=== PATIENT | male | born 2000 | race African-American/Black ===

== ENCOUNTER 2021-01-15 16:53 | Emergency (ER) | payer BC ==
[~2021-01-15] VITALS: Ht 190.5 cm; Wt 79.5 kg
[2021-01-15] MEDS ORDERED: DIPH,PERTUSS(ACELL),TET VAC/PF 0.5 ML SYRINGE. VAX IM ONE (17:45)
[2021-01-15] MEDS ORDERED: LIDOCAINE 2% Multi-Dose 20 ML VIAL. IJ ONE (17:45)
[2021-01-15] MEDS ORDERED: CEPH500T PO (18:27)
--- NOTE | 2021-01-15 18:28 | ED.ADGEN ---
Past Medical History Past Medical History: Asthma Past Surgical History: No Surgical History Smoking Status: Never Smoker Alcohol Use: None Drug Use: None General Adult EDM: Chief Complaint: LACERATION/AVULSION HPI: HPI: Patient is a 20 year old AA male who presents emergency department, accompanied by his mother, with complaints of a laceration to his right thumb. Patient reports he was trying to get the attention of his younger brother when he tapped on a window and his hand went through the window. He denies any decreased range of motion, loss of sensation, numbness, tingling, or weakness of the affected digit. Patient reports that he is dominantly right-handed. He is unsure when his last tetanus immunization was. He currently rates his pain 8 out of 10 on the pain scale and describes it as a throbbing sensation. Review of Systems: Review of Systems: Complete ROS is negative unless otherwise noted in HPI. 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 [] HENT: Normocephalic, atraumatic, bilateral external ears normal, nose normal. [] Eyes: PERRLA, EOMI, conjunctiva normal, no discharge. [] Neck: Normal range of motion, no stridor. [] Cardiovascular:Heart rate regular rhythm Lungs & Thorax: Respirations even and unlabored, no retractions, no respiratory distress Skin: Warm, dry, no erythema, no rash; 2 cm laceration to lateral edge of right thumb located between the MCP and the IP joints Extremities: Right thumb: Full extension, full flexion, no tenderness to palpation, no crepitus, no obvious deformity, no cyanosis, ROM intact, no edema. [] Neurologic: Alert and oriented X 3, no focal deficits noted. [] Psychologic: Affect normal, judgement normal, mood normal. [] Current Patient Data: Vital Signs: Vital Signs Date Time Temp Pulse Resp B/P (MAP) Pulse Ox O2 Delivery O2 Flow Rate FiO2 01/15/21 17:10 98.2 75 16 112/53 (72) 99 Room Air 98.2 EKG: EKG: [] Heart Score: C/O Chest Pain: No Risk Factors: Risk Factors: DM, Current or recent (<one month) smoker, HTN, HLP, family history of CAD, obesity. Risk Scores: Score 0 - 3: 2.5% MACE over next 6 weeks - Discharge Home Score 4 - 6: 20.3% MACE over next 6 weeks - Admit for Clinical Observation Score 7 - 10: 72.7% MACE over next 6 weeks - Early Invasive Strategies Radiology/Procedures: Radiology/Procedures: Laceration Repair by me: Anesthesia: 2% lidocaine locally Location: Right thumb Tendon/Joint/Nerves: No injury Foreign body: None detected after copious irrigation and exploration with NS and chlorhexidine Technique: 4 simple Interrupted Sutures with 4-0 Ethilon Complexity: No subcutaneous sutures/mucosal repair/edge excision Post Closure Length: 2 cm Patient's bleeding was easily controlled in the department and there is no indication of anemia. No evidence of compartment syndrome, neurologic injury, vascular injury, open joint, tendon laceration, or foreign body. Patient is appropriate for outpatient follow up. Scar minimazation instructions given. [] [] Course & Med Decision Making: Course & Med Decision Making Pertinent Labs and Imaging studies reviewed. (See chart for details) [] Dragon Disclaimer: Chencho Disclaimer: This electronic medical record was generated, in whole or in part, using a voice recognition dictation system. Departure Departure Impression: Primary Impression: Laceration of right thumb without foreign body without damage to nail Additional Impression: Need for Tdap vaccination Disposition: 01 DC HOME SELF CARE/HOMELESS Condition: STABLE Referrals: LINETTE FELIZ (PCP) Patient Instructions: Laceration Care, Adult, [id number], VIS, Tetanus, Diphtheria (Td); Tetanus, Diphtheria, Pertussis (Tdap) - CDC Additional Instructions: Fill the prescription and use it as directed. Keep the affected area clean and dry. You may take Tylenol or ibuprofen as needed for pain. Keep the dressing that was placed today on for 24 hours then change the dressing twice a day and apply antibiotic ointment to the area. Follow-up with your primary care doctor, or return to the emergency room in 10-14 days to have the sutures removed, sooner if you develop signs of infection including: redness, warmth, drainage, or a fever. Scripts Cephalexin (CEPHALEXIN) 500 Mg Tablet 1 TAB PO TID for 7 Days, #21 TAB 0 Refills Prov: FABIÁN SANTACRUZ APRN 01/15/21 Problem Qualifiers Primary Impression: Laceration of right thumb without foreign body without damage to nail Encounter type: initial encounter Qualified Codes: S61.011A - Laceration without foreign body of right thumb without damage to nail, initial encounter FABIÁN SANTACRUZ APRN Jan 15, 2021 18:28
[2021-01-15 18:36] VITALS: BP 105/65
== END 2021-01-15 18:39 | disposition home or self-care (01) ==
LOC: ER 16:53
DX: S61.011A Laceration without foreign body of right thumb without damage to nail, initial encounter (principal); J45.909 Unspecified asthma, uncomplicated; W22.09XA Striking against other stationary object, initial encounter; Y93.89 Activity, other specified; Y92.89 Other specified places as the place of occurrence of the external cause; Y99.8 Other external cause status
CPT/HCPCS: 12001; 90471; 90715; 99283